=== PATIENT | male | born 1990 | race Asian ===

== ENCOUNTER → 2016-08-08 | Day surgery (SDC) | payer BC ==
[2016-08-08] VITALS (11 sets, daily range): BP systolic 97–133; BP diastolic 58–87
[~2016-08-08] VITALS: Ht 172.7 cm; Wt 64.9 kg
[~2016-08-08] MED LIST: Bacitracin Oint 15gm Tube TOPIC ONE; Betadine 10% Oint 15gm TOPIC ONE; Bupivacaine 0.25% Inj 30ml INJ ONE; Bupivacaine w/Epi 0.25% 30ml Vial INJ ONE; Hydromorphone 0.5mg/0.5ml inj IVP PRN; Kenalog-10 5ml Inj ONE; Ketorolac 30mg Inj IV PRN; Lidocaine 1% MPF 10mg/ml 5ml ONE; Lidocaine 1% Plain 30 ml INJ ONE; NKM; NS Irrig 1000ml ONE; Norco 5mg/325mg tab ORAL PRN; PT TO BRING LIST; Propofol 10mg/ml 20ml IV ONE; ceFAZolin sod 1 GM in NS 55 ML IVPB ONE; fentaNYL 100 mcg/2 mL IV PRN
[2016-08-08 10:34] LABS: BASOPHILS % (AUTO) 1.7 % (0.0-2.0); EOSINOPHILS % (AUTO) 2.7 % (0.0-3.0); LYMPHOCYTES % (AUTO) 43.2 % (20.0-45.0); MEAN CORPUSCULAR HEMOGLOBIN 32.5 PG (27.0-31.0); MEAN CORPUSCULAR VOLUME 95 FL (80-99); MEAN PLATELET VOLUME 8.4 FL (6.5-10.1); MONOCYTES % (AUTO) 6.3 % (1.0-10.0); NEUTROPHILS % (AUTO) 46.1 % (45.0-75.0); PLATELET COUNT 267 K/UL (150-450); RED BLOOD COUNT 5.17 M/UL (4.70-6.10); RED CELL DISTRIBUTION WIDTH 11.5 % (11.6-14.8); WHITE BLOOD COUNT 5.2 K/UL (4.8-10.8)
[2016-08-08 10:52] LABS: ANION GAP 15 (5-15); CALCIUM 9.5 mg/dL (8.6-10.2); CARBON DIOXIDE 26 mEQ/L (20-30); CHLORIDE 99 mEQ/L (98-107); GLOMERULAR FILTRATION RATE > 60 mL/min (>60); HEMOLYSIS 67; POTASSIUM 4.6 mEQ/L (3.4-4.9); SODIUM 140 mEQ/L (135-145)
--- NOTE | 2016-08-08 10:59 | Pre-Procedure Note/Attestation ---
Pre-Procedure Note/Attestation Complete Prior to Procedure Planned Procedure: right Procedure Narrative: surgical excision of multiple mass right plantar heel and arch Indications for Procedure Pre-Operative Diagnosis: multiple skin mass( possible wart) right plantar heel Attestation I attest that I discussed the nature of the procedure; its benefits; risks and complications; and alternatives (and the risks and benefits of such alternatives ), prior to the procedure, with the patient (or the patient's legal district representative). I attest that, if there was a reasonable possibility of needing a blood transfusion, the patient (or the patient's legal district representative) was given the [facility] standardized written summary, pursuant to the Daniel Elie[place] Blood Safety Act ([place] Health and Safety Code # 1645, as amended). I attest that I re-evaluated the patient just prior to the surgery and that there has been no change in the patient's H&P, except as documented below: ALIA HENDERSON DPM Aug 08, 2016 10:59
--- NOTE | 2016-08-08 11:29 | Anethesia Preoperative Eval ---
Anesthesia Pre-op PMH/ROS General Date of Evaluation: Aug 08, 2016 Time of Evaluation: 11:28 Anesthesiologist: Bradley ASA Score: ASA 1 Mallampati Score Class I : Soft palate, uvula, fauces, pillars visible Class II: Soft palate, uvula, fauces visible Class III: Soft palate, base of uvula visible Class IV: Only hard plate visible Mallampati Classification: Class II Surgeon: Gloria Diagnosis: Warts on foot Surgical Procedure: Removal warts on foot Anesthesia History: none Family History: no anesthesia problems Allergies: Coded Allergies: No Known Allergies (Unverified , 08/07/16) Medications: see eMAR Past Medical History Cardiovascular: Denies: CAD, HTN, [place], arrhythmia, other, valve dz Pulmonary: Denies: COPD, DOUG, asthma, other Gastrointestinal/Genitourinary: Denies: CRI, ESRD, GERD, other Neurologic/Psychiatric: Denies: CVA, TIA, dementia, depression/anxiety, other Endocrine: Denies: DM, hypothyroidism, other, steroids HEENT: Denies: [place] (L), [place] (R), cataract (L), cataract (R), glaucoma, other Hematology/Immune: Denies: DVT, anemia, bleeding disorder, other Musculoskeletal/Integumentary: Denies: DDD, DJD, OA, RA, edema, other Anesthesia Pre-op Phys. Exam Physician Exam Last Vital Signs Date Time Temp Pulse Resp B/P Pulse Ox O2 Delivery O2 Flow Rate FiO2 08/08/16 10:21 97.7 58 20 121/75 98 Room Air Constitutional: NAD Neurologic: CN 2-12 intact Cardiovascular: RRR Respiratory: CTA Airway Exam Mallampati Score: Class II Anesthesia Pre-op A/P Labs Hematology Test 08/08/16 10:10 White Blood Count 5.2 K/UL (4.8-10.8) Red Blood Count 5.17 M/UL (4.70-6.10) Hemoglobin 16.8 G/DL (14.2-18.0) Hematocrit 49.3 % (42.0-52.0) Mean Corpuscular Volume 95 FL (80-99) Mean Corpuscular Hemoglobin 32.5 PG (27.0-31.0) H Mean Corpuscular Hemoglobin Concent 34.0 G/DL (32.0-36.0) Red Cell Distribution Width 11.5 % (11.6-14.8) L Platelet Count 267 K/UL (150-450) Mean Platelet Volume 8.4 FL (6.5-10.1) Neutrophils (%) (Auto) 46.1 % (45.0-75.0) Lymphocytes (%) (Auto) 43.2 % (20.0-45.0) Monocytes (%) (Auto) 6.3 % (1.0-10.0) Eosinophils (%) (Auto) 2.7 % (0.0-3.0) Basophils (%) (Auto) 1.7 % (0.0-2.0) Chemistry Test 08/08/16 10:10 Sodium Level 140 mEQ/L (135-145) Potassium Level 4.6 mEQ/L (3.4-4.9) Chloride Level 99 mEQ/L (98-107) Carbon Dioxide Level 26 mEQ/L (20-30) Anion Gap 15 (5-15) Blood Urea Nitrogen 17 mg/dL (7-23) Creatinine 1.0 mg/dL (0.7-1.2) Estimat Glomerular Filtration Rate > 60 mL/min (>60) Glucose Level 107 mg/dL (74-106) H Calcium Level 9.5 mg/dL (8.6-10.2) ADI FRAGOSO M.D. Aug 08, 2016 11:29
--- NOTE | 2016-08-08 11:30 | Immediate Post-Op Evaluation ---
Immediate Post-Op Evalulation Immediate Post-Op Evalulation Procedure: Removal warts Date of Evaluation: Aug 08, 2016 Time of Evaluation: 11:45 IV Fluids: 300 Blood Products: 0 Estimated Blood Loss: 0 Urinary Output: 0 Blood Pressure Systolic: 120 Blood Pressure Diastolic: 80 Pulse Rate: 87 Respiratory Rate: 20 O2 Sat by Pulse Oximetry: 98 Temperature (Fahrenheit): 98 Pain Score (1-10): 2 Nausea: No Vomiting: No Complications na Patient Status: awake Hydration Status: adequate Drug: Ancef 1G Given Within 1 Hr of Incision: Yes Time Given: 11:05 ADI FRAGOSO M.D. Aug 08, 2016 11:30
--- NOTE | 2016-08-08 11:31 | 48 Hour Post Anesthesia Eval ---
Post Anesthesia Evaluation Procedure: Removal warts Date of Evaluation: Aug 08, 2016 Time of Evaluation: 12:45 Blood Pressure Systolic: 120 0: 80 Pulse Rate: 80 Respiratory Rate: 20 Temperature (Fahrenheit): 98 O2 Sat by Pulse Oximetry: 98 Airway: patent Nausea: No Vomiting: No Pain Intensity: 2 Hydration Status: adequate Cardiopulmonary Status: stable Mental Status/LOC: patient returned to baseline Follow-up Care/Observations: na Post-Anesthesia Complications: na Follow-up care needed: N/A ADI FRAGOSO M.D. Aug 08, 2016 11:31
--- NOTE | 2016-08-08 11:48 | Brief Operative Note ---
Immediate Post Operative Note Operative Note Pre-op Diagnosis: multiple skin mass( possible wart) right plantar heel Procedure: surgical excision of mass ( x3) right heel Post-op Diagnosis: same as pre up Surgeon: alia reynolds Anesthesiologist: gene Anesthesia: MAC Specimen: yes Complications: none Condition: stable Estimated Blood Loss: none Drains: none ALIA REYNOLDS DPM Aug 08, 2016 11:48
--- NOTE | 2016-08-08 16:22 | Diagnostic Imaging Report ---
Indication: PREOP, pain Technique: 3 views right foot Comparison: none Findings: No acute fractures. No dislocations. There is mild hallux valgus. There is minimal metatarsus adductus. Joint spaces are preserved Impression: No acute process
--- NOTE | 2016-08-09 10:39 | Pre-op HX & Phy Repo 2 SIG ---
DATE OF ADMISSION: 08/08/2016 CHIEF COMPLAINT: Right foot pain. HISTORY OF PRESENT ILLNESS: This is a pleasant 26-year-old male complaining of a right foot pain plantar for the past six months. The pain has got progressively worse over the last few months. The patient complaining of painful palpable masses on the plantar right heel. He has tried conservative measures, including padding, offloading, shoe modification, and activity modification as well as seen the previous doctor. He continued to experience daily pain. He reports no recent illnesses, nausea, vomiting, fever, chills, or shortness of breath. PAST MEDICAL HISTORY: None pertinent. PAST SURGICAL HISTORY: No pertinent findings. MEDICATIONS: None. ALLERGIES: No known drug allergies. SOCIAL HISTORY: Denies alcohol, tobacco, or illicit drugs. FAMILY HISTORY: No pertinent findings. PHYSICAL EXAMINATION: VITAL SIGNS: Temperature 98.7, pulse is 66, respiratory rate of 16, blood pressure is 120/74, and O2 is 98% on room saturation. DERMATOLOGICAL: There are palpable masses, the larger one measuring 2 cm in circumference with hyperkeratotic tissue and overhanging margin painful to palpation. There is tumor or lesion on the plantar heel. There is no discoloration or pigmentation on the lesion noticed. NEUROLOGICAL: Sensation is intact to light touch. VASCULAR: Dorsalis pedis and posterior tibial pulse is palpable. No edema or erythema noted. MUSCULOSKELETAL: No pertinent findings. ASSESSMENT AND PLAN: This is a 26-year-old male with complaining of right foot pain progressively worsening and painful masses on the right plantar heel. The patient has tried numerous conservative measures, however he still experiencing daily pain and recommended surgery at next step. The patient is scheduled for today, 08/08/2016, at [facility]. The risks, benefits, and alternatives were discussed with the patient in detail, who understands and would like to proceed with the surgery and surgical intervention. All of the patient's questions and concerns have been answered. Mundo Castro D.P.M. DR: DEB JOB#: [id number] CC:
--- NOTE | 2016-08-09 11:29 | Operative Note - Dictated ---
DATE OF OPERATION: 08/08/2016 SURGEON: Mundo Castro D.P.M. ANESTHESIOLOGIST: . PREOPERATIVE DIAGNOSIS: Right plantar mass x3, rule out possible warts. POSTOPERATIVE DIAGNOSIS: Right plantar mass x3, rule out possible warts. PROCEDURE IN DETAIL: Surgical excision of the masses x3, right plantar heel. ESTIMATED BLOOD LOSS: Less than 5 mL. MATERIALS USED: None. INJECTABLE: 40 CC of 0.25% Marcaine with epinephrine was given preoperatively began anesthesia at a local level. Pathology mass resected from the fluid and was sent for pathology for study, dressing, Xeroform, ointment 4 x 4, Kerlix, and Coban. COMPLICATION: None. CONDITION: Stable. DESCRIPTION OF PROCEDURE: The patient was brought into the operating room, and was assisted on the operating table in supine position. He was well padded to avoid any pressure points. The patient was then given 1 g of Ancef before the start of surgery. A time-out was performed. Following intravenous sedation, a local block of approximately 40 cubic centimeters of 0.25 Marcaine with epinephrine in the area in local infiltration manner. The foot was then scrubbed, prepped, and usual aseptic manner. Attention was directed to the plantar right foot where the lesion were marked, the larger one approximately 2 cm in circumference. Anesthesia was checked then the patient did not respond. At this time, a 15 blade was utilized to excise the mass going around the the mass approximately 3 mm down to the level of the fascia. Mass were excised in toto down to the level of the lesion. Bleeders were cauterized and cautery was utilized to bring the base of the lesion. At this time, attention was directed to the next mass and the same exact procedure was done "I have been following that and other mass." At this time, the area was cleaned with normal saline. The area of the surgical site was then dressed utilizing bacitracin ointment and Xeroform 4 x 4, Urmila, and Coban. It was noted that the capillary refill of the toe were not changed less than two seconds. The patient tolerated surgery and anesthesia well without any complications. He was transferred to the postoperative care unit and states no pain. The patient was reminded to take antibiotics, ibuprofen, and [place] as directed. He was also instructed to keep his foot and leg elevated appears to be clean and intact. Crutches and postoperative shoe were ordered and the patient was able to partially bear weight on the right forefoot, but was advised to minimize standing ambulation for the next 24 hours. The patient is to be discharged once medically cleared by anesthesiologist and to follow up with Dr. Mundo Castro in the next visit. [place] MaldonadoPTeodoroMTeodoro MUÑIZ: DEB JOB#: [id number] CC:
== END | disposition home or self-care (01) ==
LOC: SUR 09:03
DX: B07.0 Plantar wart (principal)
CPT/HCPCS: 11420; 11422; 36415; 73630; 80048; 85025; J0690; J2704; 94003; 94150